=== PATIENT | female | born 1935 | race Caucasian/White ===

== ENCOUNTER 2016-07-08 18:04 | Inpatient (IN) | payer OTHER ==
[~2016-07-08] VITALS: Ht 149.9 cm; Wt 54.9 kg
[2016-07-08 18:48] VITALS: BP 158/74
[2016-07-08] MEDS ORDERED: OMEP20TC24 PO (18:57)
[2016-07-08] MEDS ORDERED: SODI650T2 PO (18:57)
[2016-07-08] MEDS ORDERED: SYN.05 PO (18:57)
[2016-07-08] MEDS ORDERED: SITA100T8 PO (18:57)
[2016-07-08] MEDS ORDERED: GEMF600T5 PO (18:57)
[2016-07-08] MEDS ORDERED: FURO-570 PO (18:57)
[2016-07-08] MEDS ORDERED: AMLO5TAB PO (18:57)
[2016-07-08] MEDS ORDERED: ASPI81EC97 PO (18:57)
[2016-07-08] MEDS ORDERED: CLON0.1T42 PO (18:57)
[2016-07-08] MEDS ORDERED: MEGE40TA4 PO (18:57)
[2016-07-08] MEDS ORDERED: INSU100S22 SUBQ (18:57)
[2016-07-08] MEDS ORDERED: ATOR20TA PO (18:57)
--- NOTE | 2016-07-08 20:11 | NUR ---
80 Y/O F BIB FAMILY W/C/O EPIGASTRIC PAIN, N/V AND DIARRHEA X TODAY. DENIES ANY FEVER. NO S/S OF DISTRESS NOTED AT THE MOMENT. ER MD MADE AWARE.
--- NOTE | 2016-07-08 20:11 | NUR ---
TO ER BED 2
[2016-07-08] MEDS ORDERED: ONDANSETRON 4 MG/2 ML VIAL IVP ONE (20:35)
[2016-07-08] MEDS ORDERED: KETOROLAC 30 MG/ML VIAL IVP ONE (20:35)
[2016-07-08] MEDS ORDERED: NACL 0.9% 1,000 ML IV ONE (20:35)
[2016-07-08 21:08] LABS: BASOPHILS # (AUTO) 0.2 K/uL (0.00-0.22); BASOPHILS % (AUTO) 1.2 % (0.0-2.0); EOSINOPHILS # (AUTO) 0.2 K/uL (0-0.4); EOSINOPHILS % (AUTO) 1.7 % (0.0-4.0); HEMATOCRIT 40.3 % (36-48); HEMOGLOBIN 13.3 g/dL (12.0-16.0); LYMPHOCYTES # (AUTO) 0.8 K/uL (2.5-16.5); LYMPHOCYTES % (AUTO) 6.1 % (20.5-51.1); MEAN CORPUSCULAR HEMOGLOBIN 28 pg (27-31); MEAN CORPUSCULAR HGB CONC 33 g/dL (33-37); MEAN CORPUSCULAR VOLUME 85 fL (80-94); MONOCYTES # (AUTO) 0.3 K/uL (0.8-1.0); MONOCYTES % (AUTO) 2.6 % (1.7-9.3); NEUTROPHILS # (AUTO) 11.4 K/uL (1.8-7.7); NEUTROPHILS % (AUTO) 88.4 % (42.2-75.2); PLATELET COUNT (AUTO) 231 K/uL (140-450); RED BLOOD CELL COUNT(AUTO) 4.72 MIL/uL (4.20-5.40); RED CELL DISTRIBUTION WIDTH 14.1 % (11.6-13.7); WHITE BLOOD COUNT (AUTO) 12.9 K/uL (4.8-10.8)
[2016-07-08 21:24] LABS: ALANINE AMINOTRANSFERASE 18 U/L (12-78); ALBUMIN 3.8 g/dL (3.4-5.0); ALKALINE PHOSPHATASE 209 U/L (46-116); AMYLASE 72 U/L (25-115); ANION GAP 19.6 (8-16); ASPARTATE AMINOTRANSFERASE 30 U/L (15-37); CALCIUM 8.8 mg/dL (8.5-10.1); CARBON DIOXIDE 20.1 mmol/L (21-32); CHLORIDE 96 mmol/L (98-107); CREATININE 2.2 mg/dL (0.6-1.3); LIPASE 300 U/L (73-393); POTASSIUM 3.7 mmol/L (3.5-5.1); SODIUM SERUM 132 mmol/L (136-145); TOTAL BILIRUBIN 0.7 mg/dL (0.0-1.0); TOTAL PROTEIN, SERUM 8.9 g/dL (6.4-8.2); UREA NITROGEN, BLOOD 55 mg/dL (7-18)
[2016-07-08 21:27] LABS: GLUCOSE 471 mg/dL (74-106)
[2016-07-08] MEDS ORDERED: INSULIN HUMAN REGULAR 100 UNITS/ML 10 ML VIAL IVP ONE (21:30)
[2016-07-08] MEDS ORDERED: metroNIDAZOLE 500 MG/NS PREMIX 100 ML IV ONE (22:10)
[2016-07-08] MEDS ORDERED: LEVOFLOXACIN 500 MG/D5W PREMIX 100 ML IV ONE (22:10)
--- NOTE | 2016-07-08 22:41 | NUR ---
PT RSETING IN BED, VSS. NO S/S OF DISTRESS NOTED AT THE MOMENT. CURRENTLY RECEIVING ANTIBIOTICS IV. ON MONITOR. AWATING FOR ADMITTING ORDERS.
[2016-07-08] MEDS: NACL 0.9% 1,000 ML IV SCH (23:12)
[2016-07-08] MEDS ORDERED: ONDANSETRON 4 MG/2 ML VIAL IVP PRN (23:15)
[2016-07-08] MEDS ORDERED: MORPHINE SULFATE 2 MG/ML SYR IVP PRN (23:15)
[2016-07-08] MEDS ORDERED: LORazepam 2 MG/ML VIAL IVP PRN (23:15)
[2016-07-08] MEDS ORDERED: diphenhydrAMINE 50 MG/ML VIAL IVP ONE (23:15)
[2016-07-08] MEDS ORDERED: HYDROcodone/APAP 5/325 MG 1 TAB TAB PO PRN (23:15)
[2016-07-08] MEDS ORDERED: ACETAMINOPHEN EXTRA STRENGTH 500 MG TAB PO PRN (23:40)
[2016-07-08 23:44] LABS: BILIRUBIN,URINE NEGATIVE (NEGATIVE); BLOOD, URINE NEGATIVE (NEGATIVE); COLOR,URINE YELLOW (YELLOW); LEUKOCYTE ESTERASE ,URINE 1+ (NEGATIVE); NITRITE, URINE NEGATIVE (NEGATIVE); PROTEIN,URINE 1+ (NEGATIVE); UGLUCOSE TRACE (NEGATIVE); UROBILINOGEN,URINE 0.2 EU/dL (0.2 - 1)
[2016-07-08 23:54] LABS: APPEARANCE,URINE CLEAR (CLEAR)
[2016-07-08 23:56] LABS: BACTERIA,URINE 4+ /HPF (None Seen); RBC,URINE 0-5 (RARE) /HPF (0-5)
[2016-07-08 23:57] LABS: SQUAMOUS EPITHELIAL CELL,UR 0-3 (FEW) /LPF (0-3 (FEW))
--- NOTE | 2016-07-09 | NUR ---
Patient will be admitted to care of DR AGUAYO. Admited to TELEMETRY. Will go to [facility]. Belongings list completed. Report to DARNELL DOUGLAS.
--- NOTE | 2016-07-09 | NUR ---
Note mavis in ED - 07/09/16 at 0007 by PAU Patient will be admitted to care of DR AGUAYO. Admited to TELEMETRY. [facility] Report to DARNELL DOUGLAS.
--- NOTE | 2016-07-09 00:10 | NUR ---
PT TRASFERRED VIA RBJORN, MONITOR IN BED. ELADIO, VSS, ACCOMPANIED BY DARNELL ALVA, AND HA, IAN.
[2016-07-09 00:35] VITALS: BP 134/68
--- NOTE | 2016-07-09 00:39 | NUR ---
ADMITTED PATIENT TO UNIT. PATIENT BROUGHT FROM ED VIA GURNEY ACCOMPANIED BY FAMILY MEMBERS. PATIENT ABLE TO AMBULATE TO BED WITH ASSISTANCE. PATIENT IS AAOX4 NAMIBIAN SPEAKING, ON ROOM AIR, NO SOB OR SIGN OF DISTRESS AT THIS TIME. PATIENT DENIES PAIN, IV TO LEFT HAND PATENT AND INTACT CONNECTED TO IVF AND CONTINUED ADMINISTRATION OF ANTIBIOTICS PER MD ORDER. SKIN INTACT WITH NOTED NON-BLANCHABLE REDNESS TO SACRAL AREA. NOTED MUSCLE WEAKNESS TO RIGHT SIDE OF FACE, NO SLURRED SPEECH, NO WEAKNESS OF UPPER AND LOWER EXTREMITY. PATIENT CONNECTED TO TELE MONITOR. ORIENTED PATIENT TO ROOM AND CALL LIGHT. SAFETY MEASURES CHECKED, WRIST BANDS APPLIED. DISCUSSED PLAN OF CARE WITH PATIENT, PATIENT VERBALIZED UNDERSTANDING, CALL LIGHT WITHIN REACH. WILL CONTINUE TO MONITOR.
--- NOTE | 2016-07-09 02:00 | NUR ---
PATIENT SLEEPING, NO SOB OR SIGN OF DISTRESS AT THIS TIME, CALL LIGHT WITHIN REACH. WILL CONTINUE TO MONITOR.
[2016-07-09 04:00] VITALS: BP 123/60
--- NOTE | 2016-07-09 04:24 | NUR ---
VITAL SIGNS STABLE, NO SOB OR SIGN OF DISTRESS AT THIS TIME, PATIENT DENIES PAIN, CALL LIGHT WITHIN REACH. WILL CONTINUE TO MONITOR.
[2016-07-09] MEDS: LEVOTHYROXINE 0.05 MG TAB PO SCH (05:41)
[2016-07-09] MEDS: metroNIDAZOLE 500 MG/NS PREMIX 100 ML IV SCH ×3 (05:41→18:34)
[2016-07-09] MEDS: PANTOPRAZOLE 40 MG INJ VIAL IVP SCH (05:41)
--- NOTE | 2016-07-09 05:53 | NUR ---
DUE MEDS ADMINISTERED, PATIENT TOLERATED WELL, PATIENT RESTING IN BED, NO SIGN OF DISTRESS. CALL LIGHT WITHIN REACH. WILL CONTINUE TO MONITOR.
[2016-07-09 06:42] LABS: ANION GAP 16.5 (8-16); CALCIUM 7.5 mg/dL (8.5-10.1); CARBON DIOXIDE 20.1 mmol/L (21-32); CHLORIDE 108 mmol/L (98-107); CREATININE 1.7 mg/dL (0.6-1.3); GLUCOSE 215 mg/dL (74-106); POTASSIUM 3.6 mmol/L (3.5-5.1); SODIUM SERUM 141 mmol/L (136-145); UREA NITROGEN, BLOOD 44 mg/dL (7-18)
[2016-07-09 06:43] LABS: BASOPHILS % (AUTO) 0.4 % (0.0-2.0); EOSINOPHILS % (AUTO) 0.9 % (0.0-4.0); HEMOGLOBIN 10.8 g/dL (12.0-16.0); LYMPHOCYTES # (AUTO) 0.8 K/uL (2.5-16.5); LYMPHOCYTES % (AUTO) 14.9 % (20.5-51.1); MEAN CORPUSCULAR HEMOGLOBIN 28 pg (27-31); MEAN CORPUSCULAR HGB CONC 33 g/dL (33-37); MEAN CORPUSCULAR VOLUME 86 fL (80-94); MONOCYTES # (AUTO) 0.3 K/uL (0.8-1.0); NEUTROPHILS % (AUTO) 77.8 % (42.2-75.2); PLATELET COUNT (AUTO) 177 K/uL (140-450); RED BLOOD CELL COUNT(AUTO) 3.86 MIL/uL (4.20-5.40); RED CELL DISTRIBUTION WIDTH 14.1 % (11.6-13.7); WHITE BLOOD COUNT (AUTO) 5.1 K/uL (4.8-10.8)
[2016-07-09 06:46] LABS: MAGNESIUM 1.4 mg/dL (1.8-2.4); PHOSPHORUS 2.9 mg/dL (2.5-4.9)
--- NOTE | 2016-07-09 07:28 | NUR ---
ENDORSED PATIENT TO DAY RN AT BEDSIDE, PATIENT IN STABLE CONDITION. ASSISTED PATIENT UP TO RESTROOM.
--- NOTE | 2016-07-09 07:28 | NUR ---
RECEIVED REPORT FROM NIGHT NURSE. PT IS AAOX4 BELARUSIAN SPEAKING. PT IS ON ROOM AIR, RIGHT HAND 22G INFUSING WELL, SKIN INTACT. RIGHT SIDE OF FACE DROOPINESS NOTED. PT STATES NO ABD PAIN AT THIS TIME. INITIAL ASSESSMENT COMPLETED. REVIEWED PLAN OF CARE WITH PT, PT VERBALIZED UNDERSTANDING. ALL SAFETY/FALL PRECAUTIONS MET. CALL LIGHT WITHIN REACH. WILL CONTINUE TO MONITOR.
[2016-07-09 08:00] VITALS: BP 108/60
--- NOTE | 2016-07-09 08:06 | NUR ---
PATIENT HAS BEEN SCREENED AND CATEGORIZED MODERATE NUTRITION RISK. PATIENT WILL BE SEEN WITHIN 3-5 DAYS OF ADMISSION. 07/11/16-07/13/[address]
[2016-07-09] MEDS: cloNIDine 0.1 MG TAB PO SCH ×3 (09:00→16:52)
[2016-07-09] MEDS: amLODIPine 5 MG TAB PO SCH (09:00)
[2016-07-09] MEDS: FUROSEMIDE 40 MG TAB PO SCH (09:00)
[2016-07-09] MEDS: GEMFIBROZIL 600 MG TAB PO SCH ×2 (10:08→21:23)
[2016-07-09] MEDS: MEGESTROL 40 MG TAB PO SCH (10:08)
[2016-07-09] MEDS: SODIUM BICARBONATE 650 MG TAB PO SCH ×3 (10:09→16:53)
[2016-07-09] MEDS: ECOTRIN 81 MG TABEC PO SCH (10:09)
[2016-07-09] MEDS: ATORVASTATIN 20 MG TAB PO SCH (10:09)
--- NOTE | 2016-07-09 10:15 | NUR ---
0900 MEDICATIONS GIVEN, BP MEDICATIONS WERE HOLD DUE TO BP OF 108/60. PT TOLERATED WELL. PT CURRENTLY RESTING IN BE DAUGHTER AT BEDSIDE. CALL LIGHT WITH REACH. WILL CONTINUE TO MONITOR.
[2016-07-09] MEDS: NACL 0.9% 1,000 ML IV SCH ×2 (11:12→19:40)
--- NOTE | 2016-07-09 11:12 | NUR ---
DUE MEDICATIONS GIVEN. PT CURRENTLY RESTING IN BED. FAMILY AT BEDSIDE. CALL LIGHT WITHIN REACH. WILL CONTINUE TO MONITOR.
[2016-07-09 12:00] VITALS: BP 124/73
--- NOTE | 2016-07-09 13:06 | NUR ---
CLONIDINE NOT GIVEN BP 117/65 HR 71. PT CURRENTLY AWAKE. WILL CONTINUE TO MONITOR.
[2016-07-09 16:00] VITALS: BP 110/58
--- NOTE | 2016-07-09 16:54 | NUR ---
DUE MEDICATION GIVEN, BP MEDICATION NOT GIVEN DUE TO DECREASE IN BP. ALL NEEDS MET. CALL LIGHT WITHIN RAECH. WILL CONTINUE TO MONITOR
--- NOTE | 2016-07-09 18:45 | NUR ---
PT CURRENTLY RESTING IN BED. NO S/S OF DISTRESS OR DISCOMFORT NOTED. CALL LIGHT WITHIN REACH. WILL CONTINUE TO MONITOR.
--- NOTE | 2016-07-09 19:30 | NUR ---
RECEIVED REPORT FROM DONNIE PATRICK AT BEDSIDE. PT IS ALERT AWAKE ORIENTED X4. VIETNAMESE-SPEAKING ONLY. INITIAL ASSESSMENT DONE. NO S/S OF RESPIRATORY DISTRESS OR SOB NOTED. NO C/O PAIN OR ANY DISCOMFORT AT THIS TIME. PLAN OF CARE REVIEWED TO PT AND FAMILY AT BEDSIDE AND VERBALIZED UNDERSTANDING. CALL LIGHT WITHIN REACH. WILL CONTINUE TO MONITOR.
--- NOTE | 2016-07-09 19:35 | NUR ---
ENDORSED PLAN OF CARE TO NIGHT NURSE. PT IN STABLE CONDITION.
[2016-07-09] MEDS ORDERED: MAG SULF 2000 MG/WATER PREMIX 50 ML IV SCH (19:45)
[2016-07-09 20:00] VITALS: BP 115/64
[2016-07-09] MEDS ORDERED: DEXTROSE 50% 50 ML SYR IVP PRN (20:00)
[2016-07-09] MEDS ORDERED: LEVOFLOXACIN 750 MG/D5W PREMIX 150 ML IV SCH (21:00)
[2016-07-09] MEDS: BLOOD GLUCOSE MONITORING 1 DEV DEV FS SCH (21:22)
[2016-07-09] MEDS: INSULIN DETEMIR 100 UNITS/ML 10 ML VIAL SUBQ SCH (21:24)
[2016-07-10] VITALS: BP 119/65
[2016-07-10] MEDS: metroNIDAZOLE 500 MG/NS PREMIX 100 ML IV SCH ×4 (00:20→18:15)
--- NOTE | 2016-07-10 00:30 | NUR ---
PT IS SLEEPING RIGHT NOW BUT EASILY AROUSABLE. NO S/S OF ANY DISCOMFORT AT THIS TIME. ALL NEEDS ARE ATTENDED. CALL LIGHT WITHIN REACH. WILL CONTINUE TO MONITOR.
--- NOTE | 2016-07-10 02:50 | NUR ---
PT WOKE AND STATES THAT SHE'S VERY ANXIOUS AND SAID THAT SHE WANTED TO GO BACK TO SLEEP BUT SHE CAN'T. ADMINISTER PRN MEDICATION FOR ANXIETY ORDERED. WILL CONTINUE TO MONITOR.
--- NOTE | 2016-07-10 03:20 | NUR ---
PT IS ASLEEP RIGHT NOW BUT EASILY AROUSABLE. NO S/S OF ANY DISCOMFORT AT THIS TIME. ALL NEEDS ARE ATTENDED. CALL LIGHT WITHIN REACH. WILL CONTINUE TO MONITOR.
[2016-07-10 04:00] VITALS: BP 110/65
[2016-07-10] MEDS: NACL 0.9% 1,000 ML IV SCH ×2 (05:14→15:12)
[2016-07-10] MEDS: PANTOPRAZOLE 40 MG INJ VIAL IVP SCH (05:15)
[2016-07-10] MEDS: LEVOTHYROXINE 0.05 MG TAB PO SCH (05:48)
--- NOTE | 2016-07-10 06:00 | NUR ---
AM CARE RENDERED. BED LINEN CHANGED. INSTRUCTED PT TO REPOSITION. KEPT CLEAN AND DRY. CALL LIGHT WITHIN REACH. WILL CONTINUE TO MONITOR.
[2016-07-10 06:36] LABS: BASOPHILS # (AUTO) 0.1 K/uL (0.00-0.22); BASOPHILS % (AUTO) 1.5 % (0.0-2.0); EOSINOPHILS % (AUTO) 0.8 % (0.0-4.0); HEMATOCRIT 32.5 % (36-48); HEMOGLOBIN 10.6 g/dL (12.0-16.0); LYMPHOCYTES # (AUTO) 0.9 K/uL (2.5-16.5); LYMPHOCYTES % (AUTO) 24.5 % (20.5-51.1); MEAN CORPUSCULAR HEMOGLOBIN 28 pg (27-31); MEAN CORPUSCULAR HGB CONC 33 g/dL (33-37); MEAN CORPUSCULAR VOLUME 85 fL (80-94); MONOCYTES # (AUTO) 0.5 K/uL (0.8-1.0); MONOCYTES % (AUTO) 14.7 % (1.7-9.3); NEUTROPHILS # (AUTO) 2.2 K/uL (1.8-7.7); NEUTROPHILS % (AUTO) 58.5 % (42.2-75.2); PLATELET COUNT (AUTO) 178 K/uL (140-450); RED BLOOD CELL COUNT(AUTO) 3.82 MIL/uL (4.20-5.40); RED CELL DISTRIBUTION WIDTH 14.4 % (11.6-13.7); WHITE BLOOD COUNT (AUTO) 3.7 K/uL (4.8-10.8)
[2016-07-10] MEDS: BLOOD GLUCOSE MONITORING 1 DEV DEV FS SCH ×4 (06:36→20:45)
[2016-07-10 07:08] LABS: ANION GAP 16.2 (8-16); CALCIUM 7.5 mg/dL (8.5-10.1); CARBON DIOXIDE 17.1 mmol/L (21-32); CHLORIDE 113 mmol/L (98-107); CREATININE 1.4 mg/dL (0.6-1.3); GLUCOSE 112 mg/dL (74-106); POTASSIUM 3.3 mmol/L (3.5-5.1); SODIUM SERUM 143 mmol/L (136-145); UREA NITROGEN, BLOOD 27 mg/dL (7-18)
--- NOTE | 2016-07-10 07:08 | NUR ---
RECEIVED REPORT FROM NIGHT NURSE. PT IS AAOX4 FAROESE SPEAKING. PT IS ON ROOM AIR, RIGHT HAND 22G INFUSING WELL, SKIN INTACT. RIGHT SIDE OF FACE DROOPINESS. PT CURRENTLY AWAKE RESTING IN BED. PT STATES NO PAIN OR DISCOMFORT AT THIS TIME. INITIAL ASSESSMENT COMPLETED. REVIEWED PLAN OF CARE WITH PT, PT VERBALIZED UNDERSTANDING. ALL SAFETY/FALL PRECAUTIONS MET. CALL LIGHT WITHIN REACH. WILL CONTINUE TO MONITOR.
--- NOTE | 2016-07-10 07:08 | NUR ---
PT HAS NO S/S OF ANY DISCOMFORT. PLAN OF CARE ENDORSED TO DONNIE PATRICK AT BEDSIDE FOR CONTINUITY OF CARE.
[2016-07-10 07:11] LABS: ALBUMIN 2.5 g/dL (3.4-5.0); PHOSPHORUS 2.8 mg/dL (2.5-4.9)
[2016-07-10 08:00] VITALS: BP 129/71
[2016-07-10] MEDS: cloNIDine 0.1 MG TAB PO SCH ×3 (09:00→17:00)
[2016-07-10] MEDS: amLODIPine 5 MG TAB PO SCH (09:00)
[2016-07-10] MEDS: FUROSEMIDE 40 MG TAB PO SCH (09:00)
[2016-07-10] MEDS: SODIUM BICARBONATE 650 MG TAB PO SCH ×3 (09:36→17:54)
[2016-07-10] MEDS: ATORVASTATIN 20 MG TAB PO SCH (09:36)
[2016-07-10] MEDS: GEMFIBROZIL 600 MG TAB PO SCH ×2 (09:36→20:43)
[2016-07-10] MEDS: MEGESTROL 40 MG TAB PO SCH (09:36)
[2016-07-10] MEDS: ECOTRIN 81 MG TABEC PO SCH (09:37)
--- NOTE | 2016-07-10 09:42 | NUR ---
DUE MEDICATIONS GIVEN. BP MEDICATIONS NOT GIVEN BP WNL. DAUGHTERS AT BEDSIDE. ALL NEEDS MET CALL LIGHT WITHIN REACH. WILL CONTINUE TO MONITOR.
[2016-07-10] MEDS ORDERED: POTASSIUM CHLORIDE 10 MEQ TABER PO SCH (09:59)
--- NOTE | 2016-07-10 11:25 | NUR ---
PT CURRENTLY AWAKE RESTING IN BED. ALL NEEDS MET. CALL LIGHT WITHIN REACH. WILL CONTINUE TO MONITOR.
[2016-07-10 12:00] VITALS: BP 148/72
--- NOTE | 2016-07-10 12:59 | NUR ---
DUE MEDICATION GIVEN. PT TOLERATED WELL. LEFT WRIST IV NOT FLUSHING, REMOVED IV TIP INTACT. WILL INSERT NEW IV. ALL NEEDS MET. CALL LIGHT WITHIN REACH. WILL CONTINUE TO MONITOR.
--- NOTE | 2016-07-10 13:21 | NUR ---
NEW IV INSERTED. RIGHT FA 22G, PATIENT TOLERATED WELL. MINIMAL PAIN. CALL LIGHT WITHIN REACH. WILL CONTINUE TO MONITOR.
--- NOTE | 2016-07-10 15:10 | NUR ---
PT CURRENTLY ASLEEP. CALL LIGHT WITHIN REACH. WILL CONTINUE TO MONITOR.
[2016-07-10 16:00] VITALS: BP 115/64
--- NOTE | 2016-07-10 16:45 | NUR ---
CHECKED IN ON PT, PT CURRENTLY VISITING WITH SON, NO S/S OF DISTRESS OR DISCOMFORT NOTED. ALL NEEDS MET. CALL LIGHT WITHIN REACH. WILL CONTINUE TO MONITOR.
--- NOTE | 2016-07-10 18:15 | NUR ---
DUE MEDICATIONS GIVEN. PT CURRENTLY AWAKE. ALL NEEDS MET. NO S/S OF DISTRESS OR DISCOMFORT NOTED. CALL LIGHT WITHIN REACH.
--- NOTE | 2016-07-10 18:57 | NUR ---
1700 CATAPRESS NOT GIVEN BP WNL. WILL CONTINUE TO MONITOR.
--- NOTE | 2016-07-10 19:15 | NUR ---
RECEIVED REPORT FROM DARNELL FIELDS AT BEDSIDE. INITIAL ASSESSMENT COMPLETED. PT AAOX4. PT DENIES PAIN OR DISCOMFORT. PT EATING DINNER AT THIS TIME. PT AMBULATES. PT HAS IV TO RIGHT FOREARM G 22; ASYMPTOMATIC, PATENT AND INTACT INFUSING FLUIDS WELL. EXPLAINED PLAN OF CARE AND PT VERBALIZES UNDERSTANDING. ORIENTED PT TO ROOM AND SURROUNDINGS AND USE OF CALL LIGHT. SAFETY MEASURES IN PLACE. WILL CONTINUE TO MONITOR PT.
--- NOTE | 2016-07-10 19:23 | NUR ---
ENDORSED PLAN OF CARE TO NIGHT NURSE. PT IN STABLE CONDITION.
[2016-07-10 20:00] VITALS: BP 133/74
[2016-07-10] MEDS: INSULIN DETEMIR 100 UNITS/ML 10 ML VIAL SUBQ SCH (20:45)
--- NOTE | 2016-07-10 20:47 | NUR ---
PT TOLERATED 2100 MEDS WELL. WILL CONTINUE TO MONITOR PT.
[2016-07-10] MEDS ORDERED: LEVOFLOXACIN 250 MG/D5 PREMIX 50 ML IV SCH (21:00)
[2016-07-11] VITALS: BP 141/73
[2016-07-11] MEDS: metroNIDAZOLE 500 MG/NS PREMIX 100 ML IV SCH ×3 (00:02→12:30)
--- NOTE | 2016-07-11 00:04 | NUR ---
0000 FLAGYL INFUSING NOW. PT STABLE, WILL CONTINUE TO MONITOR PT.
[2016-07-11] MEDS: NACL 0.9% 1,000 ML IV SCH ×2 (01:12→04:51)
--- NOTE | 2016-07-11 01:51 | NUR ---
PT SLEEPING AT THIS TIME. NO SIGNS OF DISTRESS/DISCOMFORT NOTED. WILL CONTINUE TO MONITOR PT.
[2016-07-11 04:00] VITALS: BP 139/75
--- NOTE | 2016-07-11 04:36 | NUR ---
CHECKED ON PT VS STABLE. PT TALKING ABOUT HER FAMILY. WILL CONTINUE TO MONITOR PT.
[2016-07-11] MEDS: PANTOPRAZOLE 40 MG INJ VIAL IVP SCH (05:35)
[2016-07-11] MEDS: LEVOTHYROXINE 0.05 MG TAB PO SCH (05:35)
[2016-07-11] MEDS: INSULIN LISPRO SLIDING SCALE 100 UNITS/ML VIAL SUBQ PRN ×2 (05:52→11:50)
[2016-07-11] MEDS: BLOOD GLUCOSE MONITORING 1 DEV DEV FS SCH ×2 (05:52→11:47)
[2016-07-11 06:20] LABS: BASOPHILS # (AUTO) 0.1 K/uL (0.00-0.22); BASOPHILS % (AUTO) 3.4 % (0.0-2.0); EOSINOPHILS # (AUTO) 0.1 K/uL (0-0.4); EOSINOPHILS % (AUTO) 1.5 % (0.0-4.0); HEMATOCRIT 34.9 % (36-48); HEMOGLOBIN 11.5 g/dL (12.0-16.0); LYMPHOCYTES # (AUTO) 1.4 K/uL (2.5-16.5); LYMPHOCYTES % (AUTO) 34.6 % (20.5-51.1); MEAN CORPUSCULAR HEMOGLOBIN 28 pg (27-31); MEAN CORPUSCULAR HGB CONC 33 g/dL (33-37); MEAN CORPUSCULAR VOLUME 86 fL (80-94); MONOCYTES # (AUTO) 0.6 K/uL (0.8-1.0); MONOCYTES % (AUTO) 14.5 % (1.7-9.3); NEUTROPHILS # (AUTO) 1.7 K/uL (1.8-7.7); PLATELET COUNT (AUTO) 187 K/uL (140-450); RED BLOOD CELL COUNT(AUTO) 4.07 MIL/uL (4.20-5.40); RED CELL DISTRIBUTION WIDTH 14.6 % (11.6-13.7); WHITE BLOOD COUNT (AUTO) 3.9 K/uL (4.8-10.8)
[2016-07-11 06:32] LABS: ANION GAP 14.1 (8-16); CALCIUM 7.7 mg/dL (8.5-10.1); CARBON DIOXIDE 19.7 mmol/L (21-32); CHLORIDE 110 mmol/L (98-107); CREATININE 1.2 mg/dL (0.6-1.3); GLUCOSE 187 mg/dL (74-106); POTASSIUM 3.8 mmol/L (3.5-5.1); SODIUM SERUM 140 mmol/L (136-145); UREA NITROGEN, BLOOD 13 mg/dL (7-18)
[2016-07-11 06:36] LABS: MAGNESIUM 1.7 mg/dL (1.8-2.4); PHOSPHORUS 2.4 mg/dL (2.5-4.9)
--- NOTE | 2016-07-11 07:30 | NUR ---
ENDORSED PLAN OF CARE TO RN TERRENCE FOR CONTINUITY OF CARE. PT IN STABLE CONDITION.
--- NOTE | 2016-07-11 07:31 | NUR ---
PT ALERT AND ORIENTED X4, ARMENIAN SPEAKING, BREATHING EVENLY AND UNLABORED. NO SIGNS OF ACUTE DISTRESS. SKIN IS WARM AND DRY. NO SIGNS OF ANY BOWEL/BLADDER DISCOMFORT. DENIES OF ANY PAIN OR DISCOMFORT. ALL NEEDS ATTENDED, SAFETY PRECAUTIONS MAINTAINED. CALL LIGHT WITHIN REACH.
[2016-07-11 08:00] VITALS: BP 139/76
[2016-07-11] MEDS: GEMFIBROZIL 600 MG TAB PO SCH (09:49)
[2016-07-11] MEDS: cloNIDine 0.1 MG TAB PO SCH ×2 (09:49→12:29)
[2016-07-11] MEDS: ECOTRIN 81 MG TABEC PO SCH (09:50)
[2016-07-11] MEDS: MEGESTROL 40 MG TAB PO SCH (09:50)
[2016-07-11] MEDS: amLODIPine 5 MG TAB PO SCH (09:50)
[2016-07-11] MEDS: ATORVASTATIN 20 MG TAB PO SCH (09:50)
[2016-07-11] MEDS: SODIUM BICARBONATE 650 MG TAB PO SCH ×2 (09:50→12:29)
[2016-07-11] MEDS: FUROSEMIDE 40 MG TAB PO SCH (09:50)
[2016-07-11] MEDS ORDERED: LEVO500T22 PO (12:40)
[2016-07-11] MEDS ORDERED: METR250T2 PO (12:41)
[2016-07-11 13:59] VITALS: BP 133/65
--- NOTE | 2016-07-11 14:45 | NUR ---
PT ALERT AND RESPONSIVE, NO SIGNS OF ACUTE DISTRESS. MAY GO HOME WITH [facility]HS ORDERED. PT AND FAMILY MADE AWARE. EDUCATED ON CONTINUING PLAN OF CARE WITH [facility]. REVIEWED DISCHARGE MEDICATIONS, INDICATIONS AND SIDE EFFECTS. PT AND FAMILY VERBALIZED UNDERSTANDING. IV LINE AND WRIST BANDS REMOVED. PERSONAL BELONGINGS WITH PT UPON DISCHARGE. [facility].
--- NOTE | 2016-07-13 09:33 | NUR ---
SS NOTE: PER JENNIFER FROM [facility] ([phone]), THEY WILL TRY TO SEND A NURSE TO SEE PT TODAY AT HOME.
== END 2016-07-11 14:45 | disposition home health service (06) | DRG 391 ==
LOC: MED 18:04 → MTU 23:23
PROVIDERS: ADMIT Family Medicine; ATTEND Family Medicine
DX: K57.32 Diverticulitis of large intestine without perforation or abscess without bleeding (principal); N17.0 Acute kidney failure with tubular necrosis; E43 Unspecified severe protein-calorie malnutrition; N39.0 Urinary tract infection, site not specified; E87.1 Hypo-osmolality and hyponatremia; E86.0 Dehydration; I12.9 Hypertensive chronic kidney disease with stage 1 through stage 4 chronic kidney disease, or unspecified chronic kidney disease; E11.22 Type 2 diabetes mellitus with diabetic chronic kidney disease; N18.9 Chronic kidney disease, unspecified; E11.65 Type 2 diabetes mellitus with hyperglycemia; E03.9 Hypothyroidism, unspecified; E78.5 Hyperlipidemia, unspecified; E87.6 Hypokalemia; E78.00 Pure hypercholesterolemia, unspecified; E83.42 Hypomagnesemia; Z79.82 Long term (current) use of aspirin; Z79.4 Long term (current) use of insulin; Z79.899 Other long term (current) drug therapy; Z68.24 Body mass index [BMI] 24.0-24.9, adult
CPT/HCPCS: 36415; 76705; 80048; 80053; 81001; 82040; 82150; 82948; 83690; 83735; 84100; 85025; 87081; 87086; 87186; 93005; 93925; 93970; 96365; 96367; 96375; 97110; 97530; 99285; C9113; J1200; J1815; J1885; J1956; J2060; J2405; J3475; J3490; J7030; Q0092

== ENCOUNTER 2016-10-21 08:32 | Outpatient (CLI) | payer OTHER ==
[~2016-10-21 08:32] MED LIST: AMLO5TAB PO; ASPI81EC97 PO; ATOR20TA PO; CLON0.1T42 PO; FURO-570 PO; GEMF600T5 PO; INSU100S22 SUBQ; LEVO500T22 PO; MEGE40TA4 PO; METR250T2 PO; OMEP20TC24 PO; SITA100T8 PO; SODI650T2 PO; SYN.05 PO
[2016-10-21 09:30] LABS: BASOPHILS # (AUTO) 0.2 K/uL (0.00-0.22); BASOPHILS % (AUTO) 1.7 % (0.0-2.0); EOSINOPHILS # (AUTO) 0.2 K/uL (0-0.4); EOSINOPHILS % (AUTO) 1.8 % (0.0-4.0); HEMOGLOBIN 12.1 g/dL (12.0-16.0); LYMPHOCYTES # (AUTO) 2.7 K/uL (2.5-16.5); LYMPHOCYTES % (AUTO) 30.9 % (20.5-51.1); MEAN CORPUSCULAR HEMOGLOBIN 28 pg (27-31); MEAN CORPUSCULAR HGB CONC 33 g/dL (33-37); MEAN CORPUSCULAR VOLUME 85 fL (80-94); MONOCYTES # (AUTO) 0.5 K/uL (0.8-1.0); MONOCYTES % (AUTO) 5.9 % (1.7-9.3); NEUTROPHILS # (AUTO) 5.3 K/uL (1.8-7.7); NEUTROPHILS % (AUTO) 59.7 % (42.2-75.2); PLATELET COUNT (AUTO) 220 K/uL (140-450); RED BLOOD CELL COUNT(AUTO) 4.36 MIL/uL (4.20-5.40); RED CELL DISTRIBUTION WIDTH 14.8 % (11.6-13.7); WHITE BLOOD COUNT (AUTO) 8.9 K/uL (4.8-10.8)
[2016-10-21 09:40] LABS: ANION GAP 11.8 (8-16); CALCIUM 8.8 mg/dL (8.5-10.1); CARBON DIOXIDE 25.7 mmol/L (21-32); CHLORIDE 107 mmol/L (98-107); CREATININE 1.4 mg/dL (0.6-1.3); GLUCOSE 183 mg/dL (74-106); POTASSIUM 4.5 mmol/L (3.5-5.1); SODIUM SERUM 140 mmol/L (136-145); UREA NITROGEN, BLOOD 32 mg/dL (7-18)
[2016-10-21 10:02] LABS: MAGNESIUM 1.6 mg/dL (1.8-2.4); PHOSPHORUS 2.9 mg/dL (2.5-4.9)
[2016-10-21 10:06] LABS: APPEARANCE,URINE CLEAR (CLEAR); BILIRUBIN,URINE NEGATIVE (NEGATIVE); BLOOD, URINE NEGATIVE (NEGATIVE); COLOR,URINE YELLOW (YELLOW); LEUKOCYTE ESTERASE ,URINE NEGATIVE (NEGATIVE); NITRITE, URINE NEGATIVE (NEGATIVE); PROTEIN,URINE 1+ (NEGATIVE); UGLUCOSE NEGATIVE (NEGATIVE); UROBILINOGEN,URINE 0.2 EU/dL (0.2 - 1)
[2016-10-21 10:32] LABS: BACTERIA,URINE None Seen /HPF (None Seen); RBC,URINE NONE SEEN /HPF (0-5); SQUAMOUS EPITHELIAL CELL,UR 0-3 (FEW) /LPF (0-3 (FEW)); WBC,URINE 0-5 (RARE) /HPF (0-5)
== END 2016-10-21 20:18 | disposition home or self-care (01) ==
LOC: MLB 08:32
DX: I12.9 Hypertensive chronic kidney disease with stage 1 through stage 4 chronic kidney disease, or unspecified chronic kidney disease (principal); N18.3 Chronic kidney disease, stage 3 (moderate)
CPT/HCPCS: 36415; 80048; 81001; 82570; 83735; 84100; 84157; 85025

== ENCOUNTER 2017-02-15 09:54 | Outpatient (CLI) | payer OTHER ==
[~2017-02-15 09:54] MED LIST changes: +LEVO500T2 PO; -LEVO500T22 PO; +OMEP20TC12 PO; -OMEP20TC24 PO
[2017-02-15 10:17] LABS: BASOPHILS # (AUTO) 0.3 K/uL (0.00-0.22); BASOPHILS % (AUTO) 3.6 % (0.0-2.0); EOSINOPHILS # (AUTO) 0.2 K/uL (0-0.4); EOSINOPHILS % (AUTO) 2.2 % (0.0-4.0); HEMATOCRIT 38.1 % (36-48); HEMOGLOBIN 12.5 g/dL (12.0-16.0); LYMPHOCYTES # (AUTO) 2.2 K/uL (2.5-16.5); LYMPHOCYTES % (AUTO) 26.9 % (20.5-51.1); MEAN CORPUSCULAR HEMOGLOBIN 28 pg (27-31); MEAN CORPUSCULAR HGB CONC 33 g/dL (33-37); MEAN CORPUSCULAR VOLUME 84 fL (80-94); MONOCYTES # (AUTO) 0.7 K/uL (0.8-1.0); MONOCYTES % (AUTO) 9.1 % (1.7-9.3); NEUTROPHILS # (AUTO) 4.6 K/uL (1.8-7.7); NEUTROPHILS % (AUTO) 58.2 % (42.2-75.2); PLATELET COUNT (AUTO) 222 K/uL (140-450); RED BLOOD CELL COUNT(AUTO) 4.55 MIL/uL (4.20-5.40); RED CELL DISTRIBUTION WIDTH 13.7 % (11.6-13.7)
[2017-02-15 11:00] LABS: ANION GAP 16.4 (8-16); ASPARTATE AMINOTRANSFERASE 21 U/L (15-37); CARBON DIOXIDE 24.9 mmol/L (21-32); CHLORIDE 104 mmol/L (98-107); PHOSPHORUS 3.3 mg/dL (2.5-4.9); POTASSIUM 4.3 mmol/L (3.5-5.1); SODIUM SERUM 141 mmol/L (136-145); TOTAL BILIRUBIN 0.5 mg/dL (0.0-1.0)
[2017-02-15 11:06] LABS: ALBUMIN 3.7 g/dL (3.4-5.0); CREATININE 1.8 mg/dL (0.6-1.3); GLUCOSE 202 mg/dL (74-106); MAGNESIUM 1.8 mg/dL (1.8-2.4); UREA NITROGEN, BLOOD 46 mg/dL (7-18)
== END 2017-02-15 20:39 | disposition home or self-care (01) ==
LOC: MLB 09:54
DX: I12.9 Hypertensive chronic kidney disease with stage 1 through stage 4 chronic kidney disease, or unspecified chronic kidney disease (principal); N18.3 Chronic kidney disease, stage 3 (moderate); E11.22 Type 2 diabetes mellitus with diabetic chronic kidney disease; E11.21 Type 2 diabetes mellitus with diabetic nephropathy
CPT/HCPCS: 36415; 80053; 82570; 83735; 84100; 85025

== ENCOUNTER 2018-02-21 08:39 | Outpatient (CLI) | payer OTHER ==
[2018-02-21 09:23] LABS: BASOPHILS % (AUTO) 0.6 % (0.0-2.0); EOSINOPHILS # (AUTO) 0.1 K/uL (0-0.4); EOSINOPHILS % (AUTO) 1.7 % (0.0-4.0); HEMATOCRIT 37.1 % (36-48); LYMPHOCYTES # (AUTO) 2.5 K/uL (2.5-16.5); LYMPHOCYTES % (AUTO) 30.3 % (20.5-51.1); MEAN CORPUSCULAR HEMOGLOBIN 29 pg (27-31); MEAN CORPUSCULAR HGB CONC 32 g/dL (33-37); MEAN CORPUSCULAR VOLUME 88.3 fL (80-94); MONOCYTES # (AUTO) 0.6 K/uL (0.8-1.0); MONOCYTES % (AUTO) 7.6 % (1.7-9.3); NEUTROPHILS % (AUTO) 59.8 % (42.2-75.2); PLATELET COUNT (AUTO) 225 K/uL (140-450); RED CELL DISTRIBUTION WIDTH 14.8 % (11.6-13.7); WHITE BLOOD COUNT (AUTO) 8.3 K/uL (4.8-10.8)
[2018-02-21 09:28] LABS: BILIRUBIN,URINE NEGATIVE (NEGATIVE); BLOOD, URINE NEGATIVE (NEGATIVE); COLOR,URINE YELLOW (YELLOW); NITRITE, URINE NEGATIVE (NEGATIVE); UGLUCOSE NEGATIVE (NEGATIVE)
[2018-02-21 09:48] LABS: APPEARANCE,URINE SLIGHTLY HAZY (CLEAR); RBC,URINE 0-5 (RARE) /HPF (0-5)
[2018-02-21 09:49] LABS: LEUKOCYTE ESTERASE ,URINE SMALL (NEGATIVE)
[2018-02-21 10:18] LABS: ALBUMIN 3.6 g/dL (3.4-5.0); ANION GAP 18.7 (8-16); ASPARTATE AMINOTRANSFERASE 19 U/L (15-37); CARBON DIOXIDE 18.8 mmol/L (21-32); CHLORIDE 106 mmol/L (98-107); CREATININE 1.9 mg/dL (0.6-1.3); GLUCOSE 172 mg/dL (74-106); MAGNESIUM 1.4 mg/dL (1.8-2.4); PHOSPHORUS 3.3 mg/dL (2.5-4.9); POTASSIUM 4.5 mmol/L (3.5-5.1); SODIUM SERUM 139 mmol/L (136-145); TOTAL BILIRUBIN 0.4 mg/dL (0.0-1.0); UREA NITROGEN, BLOOD 60 mg/dL (7-18)
== END 2018-02-21 20:28 | disposition home or self-care (01) ==
LOC: MLB 08:39
DX: I12.9 Hypertensive chronic kidney disease with stage 1 through stage 4 chronic kidney disease, or unspecified chronic kidney disease (principal); E11.22 Type 2 diabetes mellitus with diabetic chronic kidney disease; N18.3 Chronic kidney disease, stage 3 (moderate); E87.2 Acidosis
CPT/HCPCS: 36415; 80053; 81001; 83735; 84100; 84157; 85025; 87086; 87186

== ENCOUNTER 2018-07-12 16:18 | Emergency (ER) | payer OTHER ==
[~2018-07-12] VITALS: Ht 154.9 cm; Wt 57.3 kg
[2018-07-12 16:21] VITALS: BP 154/81
--- NOTE | 2018-07-12 17:17 | NUR ---
PT TO ER BED 8
--- NOTE | 2018-07-12 17:35 | NUR ---
82 YO FEMALE BIB GRANDDAUGHTER PRESENTS TO ED WITH CO HIGH BLOOD SUGAR. GRANDDAUGHTER STATES SHE CHECKED BS AT HOME AT 1544 AND IT WAS 324. BS IN TRIAGE: 289. PT DENIES ANY PAIN, OTHER SYMPTOMS OR COMPLAINTS AT THIS TIME. PMH: HTN, DM, HYPERLIPIDEMIA RX: LANTUS 20 UNITS AT BEDTIME PT POSITIONED FOR COMFORT. HOB ELEVATED. SIDE RAIL UP X 1. VSS. NO APPARENT DISTRESS AT THIS TIME. Addendum: 07/12/18 at 1818 by [facility] PT ALSO CO THROAT PAIN X 1 DAY.
--- NOTE | 2018-07-12 18:21 | NUR ---
Patient discharged with v/s stable. Written and verbal after care instructions given and explained. Patient alert, oriented and verbalized understanding of instructions. Ambulatory with steady gait. All questions addressed prior to discharge. ID band removed. Patient advised to follow up with PMD. Rx of Codeine/Promethazine HCL and Ibuprofen given. Patient educated on indication of medication including possible reaction and side effects. Opportunity to ask questions provided and answered.
[2018-07-12 18:22] VITALS: BP 136/52
== END 2018-07-12 18:21 | disposition home or self-care (01) ==
LOC: EDBD → MED 16:18
DX: J02.9 Acute pharyngitis, unspecified (principal); E11.9 Type 2 diabetes mellitus without complications; I10 Essential (primary) hypertension; E78.5 Hyperlipidemia, unspecified; Z79.4 Long term (current) use of insulin; Z79.82 Long term (current) use of aspirin; Z79.2 Long term (current) use of antibiotics; Z79.899 Other long term (current) drug therapy
CPT/HCPCS: 99283

== ENCOUNTER 2018-07-15 12:19 | Emergency (ER) | payer OTHER ==
[~2018-07-15] VITALS: Ht 149.9 cm; Wt 56.7 kg
[2018-07-15 12:25] VITALS: BP 144/67
--- NOTE | 2018-07-15 12:34 | NUR ---
pt ambulated to er bed 08
--- NOTE | 2018-07-15 13:03 | NUR ---
LAB AND RT AT BEDSIDE FOR ABG
--- NOTE | 2018-07-15 13:05 | NUR ---
PATIENT PRESENTS TO ED WITH C/O BS 443, BS CURRENTLY IS 356. PT REPORTS HEADACHE 5/. DENIES NAUSEA, VOMITING, DIZZYNESS. MEDHX:DM, HTN, HYPERLIPIDEMIA, KIDNEY FAILURE . DENEIS PAIN, VSS; PATIENT POSITIONED FOR COMFORT; HOB ELEVATED; BEDRAILS UP X2; BED DOWN. ER MD MADE AWARE OF PT STATUS.
[2018-07-15 13:23] LABS: BASOPHILS # (AUTO) 0.1 K/uL (0.00-0.22); BASOPHILS % (AUTO) 0.9 % (0.0-2.0); EOSINOPHILS # (AUTO) 0.2 K/uL (0-0.4); EOSINOPHILS % (AUTO) 2.3 % (0.0-4.0); HEMATOCRIT 36.2 % (36-48); LYMPHOCYTES # (AUTO) 2.1 K/uL (2.5-16.5); LYMPHOCYTES % (AUTO) 29.3 % (20.5-51.1); MEAN CORPUSCULAR HEMOGLOBIN 28 pg (27-31); MEAN CORPUSCULAR HGB CONC 33 g/dL (33-37); MEAN CORPUSCULAR VOLUME 84.5 fL (80-94); MONOCYTES # (AUTO) 0.6 K/uL (0.8-1.0); MONOCYTES % (AUTO) 7.6 % (1.7-9.3); NEUTROPHILS # (AUTO) 4.3 K/uL (1.8-7.7); NEUTROPHILS % (AUTO) 59.9 % (42.2-75.2); PLATELET COUNT (AUTO) 208 K/uL (140-450); RED BLOOD CELL COUNT(AUTO) 4.28 MIL/uL (4.20-5.40); RED CELL DISTRIBUTION WIDTH 14.8 % (11.6-13.7); WHITE BLOOD COUNT (AUTO) 7.2 K/uL (4.8-10.8)
[2018-07-15 13:41] LABS: ANION GAP 18.3 (8-16); CARBON DIOXIDE 20.7 mmol/L (21-32); CHLORIDE 102 mmol/L (98-107); CREATININE 2.1 mg/dL (0.6-1.3); GLUCOSE 330 mg/dL (74-106); SODIUM SERUM 137 mmol/L (136-145); UREA NITROGEN, BLOOD 53 mg/dL (7-18)
[2018-07-15 13:48] LABS: ALBUMIN 3.4 g/dL (3.4-5.0); ASPARTATE AMINOTRANSFERASE 19 U/L (15-37); TOTAL BILIRUBIN 0.4 mg/dL (0.0-1.0)
--- NOTE | 2018-07-15 14:00 | NUR ---
PT IS SITTING AT BEDSIDE, NO S/S OF DISTRESS, DENIES PAIN, VSS.
[2018-07-15 14:15] LABS: APPEARANCE,URINE CLEAR (CLEAR); BILIRUBIN,URINE NEGATIVE (NEGATIVE); BLOOD, URINE NEGATIVE (NEGATIVE); COLOR,URINE YELLOW (YELLOW); LEUKOCYTE ESTERASE ,URINE 1+ (NEGATIVE); NITRITE, URINE NEGATIVE (NEGATIVE); UGLUCOSE NEGATIVE (NEGATIVE)
--- NOTE | 2018-07-15 14:16 | NUR ---
RECHECK BS WITH 236 MG/DL, AWARE.
[2018-07-15 14:35] LABS: RBC,URINE NONE SEEN /HPF (0-5)
--- NOTE | 2018-07-15 15:10 | NUR ---
PT IS RESTING IN BED, NO S/S OF DISTRESS, VSS, DENIES PAIN.
[2018-07-15] MEDS ORDERED: NACL 0.9% 1,000 ML IV ONE (15:40)
[2018-07-15] MEDS ORDERED: cefTRIAXone 1,000 MG VIAL ONE (16:11)
--- NOTE | 2018-07-15 16:15 | NUR ---
IV INSERTED TO LEFT FOREARM, NS BOLUS STARTED, PT TOLERATED WELL.
--- NOTE | 2018-07-15 17:20 | NUR ---
IV INFUSION COMPLETED, PT STATED FEELING BETTER, VSS, DENEIS PAIN, NO S/S OF DISTRESS.
[2018-07-15 18:21] VITALS: BP 120/63
== END 2018-07-15 18:21 | disposition home or self-care (01) ==
LOC: EDBD 12:19 → MED 12:19
DX: N39.0 Urinary tract infection, site not specified (principal); E11.9 Type 2 diabetes mellitus without complications; I10 Essential (primary) hypertension; Z79.82 Long term (current) use of aspirin; Z79.4 Long term (current) use of insulin; Z79.899 Other long term (current) drug therapy
CPT/HCPCS: 36415; 36600; 80053; 81001; 82803; 82948; 85025; 87086; 96361; 96365; 99284; J0696; J7030; J7060

== ENCOUNTER 2023-03-19 04:21 | Emergency (ER) | payer OTHER ==
[~2023-03-19] VITALS: Ht 152.4 cm; Wt 51.3 kg
[~2023-03-19 04:21] MED LIST changes: +CLON0.1T16 PO; -CLON0.1T42 PO; +MEGE40TA17 PO; -MEGE40TA4 PO; +METR-520 PO; -METR250T2 PO; +OMEP-278 PO; -OMEP20TC12 PO
[2023-03-19 04:40] VITALS: BP 121/69; PULSE 75; RESP 17; TEMP 97.7; O2SAT 98
[2023-03-19] MEDS ORDERED: ACYCLOVIR 200 MG CAP PO ONE (05:20)
[2023-03-19] MEDS ORDERED: MORPHINE SULFATE 4 MG/ML SYR IM ONE (05:20)
[2023-03-19] MEDS ORDERED: ACETAMINOPHEN EXTRA STRENGTH 500 MG TAB PO ONE (05:20)
[2023-03-19] MEDS ORDERED: ONDANSETRON 4 MG ODT PO ONE (05:20)
[2023-03-19] MEDS ORDERED: ACYC400T14 PO (05:30)
[2023-03-19] MEDS ORDERED: ACET-2619 PO (05:30)
[2023-03-19] MEDS ORDERED: GABA300C PO (05:30)
[2023-03-19] MEDS ORDERED: EMLAC TP (05:30)
[2023-03-19 05:46] LABS: APPEARANCE,URINE CLEAR (CLEAR); BILIRUBIN,URINE NEGATIVE (NEGATIVE); BLOOD, URINE TRACE-I (NEGATIVE); COLOR,URINE YELLOW (YELLOW); LEUKOCYTE ESTERASE ,URINE NEGATIVE (NEGATIVE); NITRITE, URINE NEGATIVE (NEGATIVE); PROTEIN,URINE 2+ (NEGATIVE); UGLUCOSE TRACE (NEGATIVE); UROBILINOGEN,URINE 0.2 EU/dL (0.2 - 1)
[2023-03-19 05:53] VITALS: BP 121/69; PULSE 75; RESP 17; TEMP 97.7; O2SAT 98
[2023-03-19 05:58] LABS: BACTERIA,URINE FEW /HPF (None Seen); RBC,URINE 0-5 /HPF (0-5); WBC,URINE 0-5 /HPF (0-5)
[2023-03-19 05:59] LABS: MUCUS,URINE 1+ /LPF (None Seen); SQUAMOUS EPITHELIAL CELL,UR 4-10 (MOD) /LPF (0-3 (FEW))
== END 2023-03-19 05:53 | disposition home or self-care (01) ==
LOC: MED 04:21
DX: B02.9 Zoster without complications (principal); E11.9 Type 2 diabetes mellitus without complications; I10 Essential (primary) hypertension; E78.00 Pure hypercholesterolemia, unspecified; Z86.39 Personal history of other endocrine, nutritional and metabolic disease; Z79.899 Other long term (current) drug therapy; Z79.2 Long term (current) use of antibiotics; Z79.82 Long term (current) use of aspirin; Z79.4 Long term (current) use of insulin
CPT/HCPCS: 81001; 87086; 96372; 99284; J2270; Q0162